=== PATIENT | female | born 1990 | race Caucasian/White ===

== ENCOUNTER 2018-01-18 13:19 | Emergency (ER) | payer OTHER, SELFPAY ==
[2018-01-18 13:39] VITALS: BP 119/72; PULSE 73; RESP 16; TEMP 36.8; O2SAT 99
--- NOTE | 2018-01-18 14:35 | ED.SKABFB ---
HPI - Skin/Abscess/Foreign Bdy <YOSEF Wright - Last Filed: 01/18/18 22:39> General Chief complaint: Skin/Abscess/Foreign Body Stated complaint: NECK SWOLLEN AND CYST ON HEAD THAT IS PAINFUL Time Seen by Provider: 01/18/18 14:36 Source: patient Mode of arrival: ambulatory Limitations: no limitations History of Present Illness HPI narrative: 27-year-old female here for concern of having his abscess to top of scalp. 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 She has been treated with multiple rounds of antibiotics. She has already seen Infectious Disease for further treatment and evaluation. She states that this episode started a couple days and she reports increased pain into the top of her scalp and some swelling. She also reports that she has some lymph nodes that have swelling to the left side of her neck. No fevers. No drainage from the area. No trauma to the area. No other concerns or complaints. MD complaint: abscess/boil Related Data Home Medications Medication Instructions Recorded Confirmed ibuprofen 600 mg PO TID PRN 01/18/18 01/18/18 topiramate [Topamax] 50 mg PO BID 01/18/18 01/18/18 Previous Rx's Medication Instructions Recorded clindamycin HCl 300 mg PO QID #28 cap 01/18/18 Allergies Allergy/AdvReac Type Severity Reaction Status Date / Time amoxicillin [AMOXICILLIN] Allergy Mild Hives Verified 01/18/18 13:42 clavulanic acid Allergy Mild Hives Verified 01/18/18 13:42 [From AUGMENTIN] Review of Systems <YOSEF Wright - Last Filed: 01/18/18 22:39> Constitutional Denies chills, Denies fever(s), Denies lethargy and Denies weakness Eyes Denies change in vision, Denies eye discharge, Denies irritation and Denies loss of vision ENT Ears, Nose, Mouth, and Throat: Denies change in voice, Denies neck pain and Denies sore throat Cardiovascular Denies chest pain, Denies irregular heart rhythm, Denies lightheadedness, Denies palpitations, Denies dyspnea, Denies dyspnea on exertion and Denies orthopnea Respiratory Denies cough, Denies dyspnea, Denies dyspnea on exertion and Denies wheezing Gastrointestinal Gastrointestinal: Denies abdominal pain, Denies change in bowel habits, Denies diarrhea, Denies nausea and Denies vomiting Genitourinary Denies hematuria, Denies flank pain, Denies urinary incontinence and Denies urinary urgency Musculoskeletal Denies neck pain Integumentary/Breasts Comments: Abscess to top of scalp Neurologic Denies confusion, Denies loss of vision and Denies weakness Psychiatric Denies anxiety, Denies confusion, Denies depression, Denies homicidal ideation and Denies suicidal ideation Endocrine Denies palpitations Hematologic/Lymphatic Denies easy bruising Allergic/Immunologic Denies wheezing Exam <YOSEF Wright - Last Filed: 01/18/18 22:39> Initial Vital Signs Initial Vital Signs: Vital Signs Temperature 98.2 F 01/18/18 13:39 Pulse Rate 73 01/18/18 13:39 Respiratory Rate 16 01/18/18 13:39 Blood Pressure 119/72 01/18/18 13:39 Pulse Oximetry 99 01/18/18 13:39 Const General: cooperative and well developed Nutritional Appearance: well nourished Orientation: alert, awake, oriented x3 and not confused [facility] Head: other (2 cm raised furuncle to top of scalp with induration and fluctuance) Mouth: oral mucosae normal and moist mucous membranes Eyes Conjunctivae: conjunctivae normal Sclera: sclerae normal Pupils: PERRL EOM: EOM intact bilaterally Neck Neck: lymphadenopathy (Swollen lymph node to the posterior auricular area right-sided) Chest Chest: normal inspection of the chest Resp Effort & Inspection: normal respiratory effort, able to speak in complete sentences, no respiratory distress and no use of accessory muscles Auscultation: clear to auscultation bilaterally, no rales, no rhonchi and no wheezes Cardio Rate: regular rate Rhythm: regular rhythm Heart Sounds: no click, no gallops, no murmurs and no rubs Pulses: normal peripheral pulses Neuro General: alert, oriented x3, gait normal and no focal motor deficits Speech: speech normal <Chang Horta DO - Last Filed: 01/19/18 07:03> Initial Vital Signs Initial Vital Signs: Vital Signs Temperature 98.2 F 01/18/18 13:39 Pulse Rate 73 01/18/18 13:39 Respiratory Rate 16 01/18/18 13:39 Blood Pressure 119/72 01/18/18 13:39 Pulse Oximetry 99 01/18/18 13:39 Procedures <YOSEF Wright - Last Filed: 01/18/18 22:39> Abscess I/D Site: scalp Local Anesthetic: lidocaine 1% Amount of anesthesia used (mL): 1 Technique: incised with #11 blade Amount of fluid expressed (mL): 5 Irrigation: Yes Packing used?: none Course <YOSEF Wright - Last Filed: 01/18/18 22:39> Orders Ordered: ED Orders 01/18/18 15:00 Wound Culture and Gram Stain Stat Vital Signs - 8 hr 01/18/18 15:54 Pulse Rate 61 Respiratory Rate 14 Blood Pressure [Right Arm] 117/77 Pulse Oximetry 100 <Chang Horta DO - Last Filed: 01/19/18 07:03> Orders Ordered: ED Orders 01/18/18 15:00 Wound Culture and Gram Stain Stat Vital Signs - 8 hr 01/18/18 15:54 Pulse Rate 61 Respiratory Rate 14 Blood Pressure [Right Arm] 117/77 Pulse Oximetry 100 MDM - Skin/Abscess/Foreign Bdy <YOSEF Wright - Last Filed: 01/18/18 22:39> MDM Narrative Medical decision making narrative: Abscess to top of scalp was incised and drained. Patient tolerated well no complications. Wound culture was obtained and is pending. She is placed on clindamycin to cover for infection. [id number] ibuprofen as needed for any discomfort. Follow up with primary care provider the next few days for re-evaluation. For any worsening symptoms return to the emergency room. Discharge Plan Departure Patient Disposition: Home Clinical Impression: Abscess of scalp Discharge Date/Time: 01/18/18 15:59 Interventions: ED Discharge Assessment Last Done: 01/18/18 15:57 Instructions: DI for Incision and Drainage of a Skin Abscess Activity Restrictions/Additional Instructions: Abscess to top of scalp was incised and drained today. Wound culture was obtained and is pending. you are placed on clindamycin as an antibiotic to cover for infection use as directed. Use Motrin as needed for discomfort. Follow up with primary care provider the next couple days for re-evaluation. For any worsening symptoms return to the emergency room. Prescriptions: New clindamycin HCl 300 mg capsule 300 mg PO QID Qty: 28 RF: 0 No Action topiramate [Topamax] 50 mg Tablet 50 mg PO BID RF: 0 ibuprofen 600 mg Tablet 600 mg PO TID PRN (Reason: Pain (Scale Score 1-3)) RF: 0 [facility]errals: [facility] [Provider Group] <Chang Horta, - Last Filed: 01/19/18 07:03> Cosign ED Attending Christian Attestation: I was available for consultation during this patient's emergency department encounter
[2018-01-18 15:54] VITALS: BP 117/77; PULSE 61; RESP 14; O2SAT 100
== END 2018-01-18 15:59 | disposition home or self-care (01) ==
PROVIDERS: Emergency Provider Nurse Practitioner Family
DX: L02.811 Cutaneous abscess of head [any part, except face] (principal)
CPT/HCPCS: 10060; 87070; 87075; 87077; 87205; 99282; 99283

== ENCOUNTER → 2018-03-12 20:15 | Outpatient (CLI) | payer OTHER, SELFPAY ==
--- NOTE | 2018-03-12 20:19 | DI.MRI.S_ITS ---
PROCEDURE: MR SHOULDER RT WO CON INDICATIONS: PAIN IN RIGHT SHOULDER TECHNIQUE: Noncontrast oblique coronal T2 fast spin echo with fat saturation, oblique sagittal T1 spin echo and T2 fast spin echo with fat saturation, axial T1 spin echo and T2 fast spin echo with fat saturation through the shoulder. COMPARISON: None. FINDINGS: Image quality: Excellent. Rotator cuff: There is tendinosis and low-grade bursal surface partial-thickness tear involving distal supraspinatus near its insertion on humeral head. Distal infraspinatus is intact. Distal subscapularis tendinosis is seen. No full-thickness rotator cuff tendon rupture. Sagittal images demonstrate no significant rotator cuff muscle atrophy. Bones and bursae: No bone marrow contusions or fractures. No acromioclavicular joint degeneration. The acromion demonstrates conventional anatomy, without an os acromiale. No pathologic subacromial-subdeltoid or subcoracoid bursal fluid is present. Capsule and soft tissues: In the absence of intra-articular contrast, the glenohumeral ligaments appear intact. There is signal abnormality and contour irregularity involving superior anterior labrum at 12 to 1:00 position suggestive of superior anterior labral tear. The long head of the biceps tendon demonstrates normal location and morphology. The rotator interval appears normal, without fibrosis. The coracohumeral ligament is normal in thickness. IMPRESSION: 1. Tendinosis and low-grade bursal surface partial-thickness tear involving distal supraspinatus. 2. Signal abnormality in superior anterior labrum at 12 to 1:00 position suspicious for a superior anterior labral tear. Dictated by: Hai Oh M.D. on 03/13/2018 10:39 Approved by: Hai Oh M.D. on 03/13/2018 at 11:02
== END ==
PROVIDERS: Visit Provider Student in an Organized Health Care Education/Training Program
DX: M25.511 Pain in right shoulder (principal); M75.111 Incomplete rotator cuff tear or rupture of right shoulder, not specified as traumatic
CPT/HCPCS: 73221